=== PATIENT | female | born 2000 | race Two or more races ===

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

== ENCOUNTER 2020-04-04 09:19 | Emergency (ER) | payer OTHER ==
[2020-04-04 09:28] VITALS: BP 104/64; PULSE 69; TEMP 98.2; BMI 20.8
[2020-04-04 09:54] LABS: HCG,QUALITATIVE URINE Negative
--- NOTE | 2020-04-04 10:06 | PDOC ---
History of Present Illness - General Chief Complaint: Pain, Acute Stated Complaint: ABD CRAMPING/NAUSEA Time Seen by Provider: 04/04/20 09:26 History Source: Patient Exam Limitations: No Limitations - History of Present Illness Initial Comments: Nimo Ceballos is a healthy 20 yo F who denies any pmh who presents to the [facility] with 1 month of constipation and difficulty taking bowel movements. She reports that she has been trying to take miralax recently and increase the fiber content of her diet but she has a hard time having a good bowel movement. She recently started taking vitamins and is concerned that the iron in the vitamins are further contributing to her constipation. She is worried bc she thinks she is now starting to develop a hemorrhoid bc of her constipation. She has an appointment with Dr. Michel in April but came in because she was nervous that something is wrong. Sexual Hx: Patient denies hx of STD's. Admits to being sexually active orally but denies vaginal penetration. States she doesn't think she is bc she has never had sex but is concerned about and would like to be tested. TEMPLE MARKER hx: Patient endorses intermenstrual light spotting this month which is abnormal for her. She denies abdominal pain, diarrhea, bloody bowel movements, chest pain, SOB, difficulty breathing. PCP: Dr. Em GI: Anand Allergies: Dust and pollen. NKDA PSH: None reported Social Hx: Drinks relationally. Denies smoking or illicit drug usage Past History - Medical History Allergies/Adverse Reactions: Allergies Allergy/AdvReac Type Severity Reaction Status Date / Time No Known Allergies Allergy Verified 04/04/20 09:21 Home Medications: Ambulatory Orders NK [No Known Home Medication] 04/04/20 COPD: No - Psycho-Social/Smoking History Smoking History: Never smoked Have you smoked in the past 12 months: No - Substance Abuse Hx (Audit-C & DAST Scrn) How often the patient has a drink containing alcohol: Never Score: In Men: 4 or > Positive; In Women: 3 or > Positive: 0 Screen Result (Pos requires Nsg. Audit-10AR): Negative In the last yr the pt used illegal drug/Rx for NonMed reason: No Score: Yes response is considered Positive: 0 Screen Result (Positive result requires Nsg. DAST-10): Negative Review of Systems - Review of Systems Able to Perform ROS?: Yes Comments:: CONSTITUTIONAL: Absent: fever, no chills, no fatigue EYES: Absent: visual changes ENT: Absent: ear pain, no sore throat CARDIOVASCULAR: Absent: chest pain, no palpitations RESPIRATORY: Absent: cough, no SOB GI: Present: Nausea, constipation Absent: abdominal pain, no vomiting, no diarrhea GENITOURINARY: Absent: dysuria, no frequency, no hematuria MUSKULOSKELETAL: Absent: back pain, no arthralgia, no myalgia SKIN: Absent: rash NEURO: Absent: headache *Physical Exam - Vital Signs Last Vital Signs Temp Pulse Resp BP Pulse Ox 98.2 F 69 16 104/64 98 04/04/20 09:21 04/04/20 09:21 04/04/20 09:21 04/04/20 09:21 04/04/20 09:21 - Physical Exam GENERAL: Well-appearing, well-nourished. No apparent distress. HEENT: Normocephalic, atraumatic. PERRL, EOM intact. CARDIOVASCULAR: Normal S1, S2. Regular rate and rhythm. PULMONARY: No evidence of respiratory distress. Lungs clear to auscultation bilaterally. No wheezing, rales or rhonchi. ABDOMEN: Soft, non-distended, non-tender. Normal bowel sounds. No rebound or guarding. Not peritoneal. EXTREMITIES: Normal ROM in all four extremities. No gross deformities. SKIN: Warm, dry. No rash NEUROLOGICAL: No focal neurological deficits. ED Treatment Course - LABORATORY CBC & Chemistry Diagram: 04/04/20 10:12 04/04/20 10:12 - ADDITIONAL ORDERS Additional order review: Laboratory Results 04/04/20 09:29 Urine Color Yellow Urine Appearance Clear Urine pH 5.5 Urine Protein Negative Urine Glucose (UA) Negative Urine Ketones Negative Urine Blood Trace-intact Urine Nitrite Negative Urine Bilirubin Negative Urine Urobilinogen 0.2 Ur Leukocyte Esterase Negative Urine HCG, Qual Negative Medical Decision Making - Medical Decision Making Nimo Ceballos is a healthy 20 yo F who denies any pmh who presents to the [facility] with 1 month of constipation and difficulty taking bowel movements. She reports that she has been trying to take miralax recently and increase the fiber content of her diet but she has a hard time having a good bowel movement. She recently started taking vitamins and is concerned that the iron in the vitamins are further contributing to her constipation. She is worried bc she thinks she is now starting to develop a hemorrhoid bc of her constipation. She has an appointment with Dr. Michel in April but came in because she was nervous that something is wrong. Sexual Hx: Patient denies hx of STD's. Admits to being sexually active orally but denies vaginal penetration. States she doesn't think she is bc she has never had sex but is concerned about and would like to be tested. TEMPLE MARKER hx: Patient endorses intermenstrual light spotting this month which is abnormal for her. She denies abdominal pain, diarrhea, bloody bowel movements, chest pain, SOB, difficulty breathing. Vital Signs Temp Pulse Resp BP Pulse Ox 98.2 F 69 16 104/64 98 04/04/20 09:21 04/04/20 09:21 04/04/20 09:21 04/04/20 09:21 04/04/20 09:21 DDx IBNLT: - IUP vs ectopic, electrolyte/metabolic disturbance, Thyroid issues Plan: basic labs, urine, re-assess, likely GI follow up as patient appears very well and does not seem to have an emergent issues. Labs: Unremarkable and WNL. Urine: unremarkable, HCG negative Re-assessment: Patient appears very well, has no acute pain or emergent issues. She is constantly requesting to be discharged as she thought her ER visit would only be 15 minutes. The patient appears clinically sober, is A&O x4, and appears to be capable and have capacity to make reasonable decisions. The patient states they are currently in the emergency department, knows who the president is, states the correct time, correct day, and correct month. The patient is ambulatory in ER and has walked around the nursing station multiple times with a straight gait, and is not ataxic. Tolerating PO well, ate a sandwich and drank juice. Denies having any SI or HI. Patient states will not be driving home. I discussed the physical exam findings, ancillary test results and final diagnoses with the patient. I answered all of the patient's questions. The patient was satisfied with the care received and felt comfortable with the discharge plan and treatment plan. The patient will call their primary care physician within 24 hours to arrange follow-up and will return to the Emergency Department with any new, persistent or worsening symptoms. Dispo: Home with PCP and GI fu and strict return precautions Please note, this clinical encounter is taking place during a federal and state health care emergency attributable to the novel Hess Virus pandemic. The Clinical Application Manager of the Department of Health and Human Services has declared, pursuant to the Public Health Service Act 319F-3 (42 U.S.C. 247d-6d), that a covered persons activities related to medical countermeasures against COVID-19 will be immune from liability under Federal and State law. Discharge - Discharge Information Problems reviewed: Yes Clinical Impression/Diagnosis: Constipation Qualifiers: Constipation type: unspecified constipation type Qualified Code(s): K59.00 - Constipation, unspecified Condition: Stable Disposition: HOME - Admission No - Follow up/Referral Referrals: Farrukh Em MD [Primary Care Provider] - Ayesha Michel MD [Staff Physician] - [facility] [place] [facility] [Provider Group] - Patient Discharge Instructions Patient Printed Discharge Instructions: Constipation (Alternative Therapy), Constipation, Increased Dietary Fiber May Improve Constipation Conditions With Pelvic Azam Additional Instructions: You must return to the Emergency Department with any new complaints, if your symptoms persist and do not improve or if you develop any other new or worsening concerns. As discussed, please call to follow up with your Primary Care physician and grocery stocker in 1-2 days to discuss what happened to you in the emergency room, and make sure you are being looked after and taken care of. Your emergency room visit is not complete without this follow up appointment. Thank you for coming to the [facility]. We hope you feel better soon! Print Language: VIETNAMESE - Post Discharge Activity Work/Back to School Note: Back to Work
[2020-04-04 10:16] LABS: EPITHELIAL CELLS FEW /hpf
[2020-04-04 10:43] LABS: BASO % 1.6 % (0-2.0); EOS % 4.8 % (0-4.5); HEMATOCRIT 43.3 % (32.4-45.2); HEMOGLOBIN 14.5 GM/dl (10.7-15.3); LYMPH % 26.2 % (8-40); MCHC 33.6 g/dl (32.0-36.0); MEAN CELL VOLUME 86.5 fl (80-96); MEAN PLT VOLUME 8.5 fl (7.5-11.1); MONO % 4.6 % (3.8-10.2); NEUT % 62.8 % (42.8-82.8); PLATELET COUNT 260 K/MM3 (134-434); RBC 5.01 M/mm3 (3.60-5.2); RDW 12.1 % (11.6-15.6)
[2020-04-04 10:47] LABS: ALBUMIN 4.8 g/dl (3.4-5.0); BILIRUBIN,TOTAL 0.5 mg/dl (0.2-1); CALCIUM 9.8 mg/dl (8.5-10); CREATININE 0.7 mg/dl (0.55-1.3); TOT PROT 8.6 g/dl (6.4-8.2)
--- NOTE | 2020-04-04 11:18 | PDOC ---
Attending Attestation - Resident Resident Name: GarlandAiden - ED Attending Attestation I have performed the following: I have examined & evaluated the patient, The case was reviewed & discussed with the resident, I agree w/resident's findings & plan, Exceptions are as noted - HPI HPI: 04/04/20 11:15 20 yo F here with c/o nausea, and constipation. pt states she has had intermittent constipation as hard painful stools for several weeks. was taking miralax which resolved the problem but she then stopped. does occasionally get blood with wiping but has not had it in several months. has had hemorrhoids for several years. states she is not , however has engaged in only oral sex no vaginal intercouse but was paranoid somehow she may be . does have h/o anemia, no h/o thyroid disorder. no weight loss or gain, does have cold intolerance, but is more of a preference. no abd pain. no vomiting. has appointment scheduled with GI. - Physicial Exam PE: 04/04/20 11:12 Awake alert no acute distress lungs are clear bilaterally heart is regular with any murmurs rubs or gallops the abdomen is soft and nontender no palpable masses extremities are warm and well-perfused skin is warm and dry no rash - Medical Decision Making 04/04/20 11:18 20-year-old female no past medical history today complaining of 3 weeks of constipation and nausea unsure if she may be normal physical exam plan we will send basic lab work ruling out any electrolyte abnormalities or anemia will also add a thyroid UA. Due to suicide which is negative or unremarkable basic labs are normal TSH is pending we will call the patient with the results patient has close follow-up with GI at this point due to the fact that her exam is nontender and felt the risks and benefits of CT radiation is unnecessary she should follow-up with GI and go from there Discharge - Discharge Information Problems reviewed: Yes Clinical Impression/Diagnosis: Constipation Qualifiers: Constipation type: unspecified constipation type Qualified Code(s): K59.00 - Constipation, unspecified Condition: Stable Disposition: HOME - Follow up/Referral Referrals: [facility] [place] [facility] [place] [Provider Group] Farrukh Em MD [Primary Care Provider] - Ayesha Michel MD [Staff Physician] - - Patient Discharge Instructions Patient Printed Discharge Instructions: Constipation (Alternative Therapy), Constipation, Increased Dietary Fiber May Improve Constipation Conditions With Pelvic Azam Additional Instructions: You must return to the Emergency Department with any new complaints, if your symptoms persist and do not improve or if you develop any other new or worsening concerns. As discussed, please call to follow up with your Primary Care physician and breakfast attendant in 1-2 days to discuss what happened to you in the emergency room, and make sure you are being looked after and taken care of. Your emergency room visit is not complete without this follow up appointment. Thank you for coming to the [facility]. We hope you feel better soon! Print Language: INDIAN - Post Discharge Activity Work/Back to School Note: Back to Work
== END 2020-04-04 11:19 | disposition home or self-care (01) ==
LOC: FER 09:19
DX: K59.00 Constipation, unspecified (principal)
CPT/HCPCS: 36415; 80053; 81003; 81015; 84443; 84703; 85025; 87086; 99283-25

== ENCOUNTER 2021-02-02 04:54 | Day surgery (SDC) | payer OTHER ==
[2021-01-31 09:06] VITALS: BMI 20.5
[2021-02-02 09:11] VITALS: TEMP 97.3
[2021-02-02 10:35] VITALS: BP 112/69; PULSE 67
== END 2021-02-02 09:20 | disposition home or self-care (01) ==
LOC: JASU-ENDO 04:54
PROVIDERS: ATTEND Internal Medicine Gastroenterology
PROC: 0DB78ZX Excision of Stomach, Pylorus, Via Natural or Artificial Opening Endoscopic, Diagnostic (ICD-10-PCS; 2021-02-02)
PROC: 0DB98ZX Excision of Duodenum, Via Natural or Artificial Opening Endoscopic, Diagnostic (ICD-10-PCS; principal; 2021-02-02 08:15)
DX: K29.80 Duodenitis without bleeding (principal); K29.50 Unspecified chronic gastritis without bleeding; K30 Functional dyspepsia
CPT/HCPCS: 81025; 88305-TC; 88342-TC

== ENCOUNTER 2021-08-19 17:10 | Emergency (ER) | payer BC, OTHER ==
[2021-08-19 17:16] VITALS: BP 122/68; PULSE 104; TEMP 99.5; BMI 20.6
[2021-08-19] MEDS ORDERED: KETOROLAC TROMETHAMINE 30 MG/1 ML VIAL IVPUSH ONE (17:41)
[2021-08-19] MEDS ORDERED: SODIUM CHLORIDE 1,000 ML IV SCH (17:45)
[2021-08-19] MEDS ORDERED: KETOROLAC TROMETHAMINE 15 MG/ML VIAL ONE (18:08)
[2021-08-19 18:30] LABS: BILIRUBIN,TOTAL 0.5 mg/dl (0.2-1); CALCIUM 9.2 mg/dl (8.5-10); CREATININE 0.7 mg/dl (0.55-1.3); TOT PROT 7.3 g/dl (6.4-8.2)
[2021-08-19 18:44] LABS: HCG,QUALITATIVE URINE Negative
[2021-08-19 19:26] LABS: HEMOGLOBIN 13.6 GM/dL (10.7-15.3); MCH 29.5 pg (25.7-33.7); MCHC 34.1 g/dl (32.0-36.0); MEAN CELL VOLUME 86.5 fl (80-96); MEAN PLT VOLUME 8.5 fl (7.5-11.1); PLATELET COUNT 146 10^3/uL (134-434); RBC 4.62 M/mm3 (3.60-5.2); RDW 12.8 % (11.6-15.6); WHITE BLOOD COUNT 7.8 K/mm3 (4.0-10.0)
[2021-08-19 20:00] LABS: ANISOCYTOSIS 0; MACROCYTOSIS 0; PLATELET ESTIMATE NORMAL
== END 2021-08-19 23:26 | disposition home or self-care (01) ==
LOC: FER 17:10
PROC: 3E0333Z Introduction of Anti-inflammatory into Peripheral Vein, Percutaneous Approach (ICD-10-PCS; principal; 2021-08-19)
DX: R10.31 Right lower quadrant pain (principal); N83.01 Follicular cyst of right ovary
CPT/HCPCS: 36415; 76700-TC; 76830-TC; 80053; 81003; 84703; 85025; 86308; 86705; 86708; 87340; 87491; 87517; 87591; 99285-25

== ENCOUNTER 2022-05-09 15:15 | Emergency (ER) | payer BC ==
[2022-05-09] MEDS ORDERED: IBUPROFEN 400 MG TABLET (FP) PO ONE ×2 (15:34→16:27)
[2022-05-09] MEDS ORDERED: FAMOTIDINE 20 MG TABLET PO ONE (16:15)
[2022-05-09 16:20] VITALS: BP 120/67; PULSE 62; RESP 18; TEMP 98.1; BMI 18.1
[2022-05-09] MEDS ORDERED: FAMOTIDINE 20 MG TABLET ONE (16:28)
== END 2022-05-09 16:36 | disposition home or self-care (01) ==
LOC: FER 15:15
DX: M54.6 Pain in thoracic spine (principal)
CPT/HCPCS: 81025; 99283-25